=== PATIENT | male | born 1960 | race Caucasian/White ===

== ENCOUNTER → 2021-10-14 | Outpatient (CLI) | payer BC ==
[~2021-10-14] MED LIST: CIPR500 PO; EZETIMIBE-SIMV1 EAC1 PO; IRBE150; IRBE150 PO; METF500C PO; METO100ER; METO25ER; METO50ER PO; OXYACE10; OXYACE5T PO; PHENA200 PO; PROM25 PO; TAMS.4ER; TAMS.4ER PO; VENL37.5; WARF1; WARF10; WARF7.5
== END | disposition home or self-care (01) ==
LOC: LAB SHORT 15:05
DX: L72.9 Follicular cyst of the skin and subcutaneous tissue, unspecified (principal)
CPT/HCPCS: 88304

== ENCOUNTER 2024-01-31 17:30 | Inpatient (IN) | payer OTHER ==
[~2024-01-31] VITALS: Ht 180.3 cm; Wt 124.7 kg
[~2024-01-31 17:30] MED LIST changes: +Benadryl Itch28.3 G1 TOP; +CEPH500 PO; +ELIQUIS5 M2 PO; +MIRT15 PO; +ROSU10TA PO; +TRAM50 PO; +VISBIOME 112.51 EACH PO
[2024-01-31 18:05] LABS: BASOPHILS ABSOLUTE AUTO 0.04 K/mm3 (0.00-0.23); BASOPHILS PERCENT AUTO 0 % (0-2); EOSINOPHILS ABSOLUTE AUTO 0.09 K/mm3 (0.00-0.68); EOSINOPHILS PERCENT AUTO 1 % (0-6); Hematocrit 37.2 % (37.0-53.0); Hemoglobin 12.4 g/dL (13.5-17.5); IMMATURE GRAN ABSOLUTE AUTO 0.05 K/mm3 (0.00-0.10); IMMATURE GRAN PERCENT AUTO 1 % (0-1); LYMPHOCYTES ABSOLUTE AUTO 1.43 K/mm3 (0.84-5.20); LYMPHOCYTES PERCENT AUTO 14 % (21-46); MONOCYTES ABSOLUTE AUTO 0.72 K/mm3 (0.16-1.47); MONOCYTES PERCENT AUTO 7 % (4-13); Mean Corpuscular HGB 31.6 pg (26.0-34.0); Mean Corpuscular HGB Conc 33.3 g/dL (31.5-36.5); Mean Corpuscular Volume 95 fL (80-100); Mean Platelet Volume 8.2 fL (9.1-12.4); NEUTROPHILS ABSOLUTE AUTO 7.66 K/mm3 (1.96-9.15); NEUTROPHILS PERCENT AUTO 77 % (41-73); Platelet Count 373 K/mm3 (150-400); RDW Coefficient Variation 13.4 % (11.7-14.2); RDW Standard Deviation 47.2 fL (35.1-46.3); Red Blood Cell Count 3.93 M/mm3 (4.30-5.90); White Blood Cell Count 9.99 K/mm3 (4.00-11.30)
[2024-01-31] MEDS ORDERED: VANCOMYCIN HCL IV ONE (18:25)
[2024-01-31] MEDS ORDERED: CefTRIAXone Sodium 1,000 MG in NS 50 ML IV ONE (18:25)
[2024-01-31] MEDS ORDERED: NS IV ONE (18:25)
[2024-01-31 18:28] LABS: Albumin, Blood 2.5 g/dL (3.4-5.0); Albumin/Globulin Ratio 0.5 (0.8-1.8); Bilirubin, Total 0.8 mg/dL (0.1-1.0); Bun/Creatinine Ratio 15.1 (12.0-20.0); Calcium, Blood 9.1 mg/dL (8.5-10.1); Creatinine, Blood 0.99 mg/dL (0.60-1.20); Globulin, Blood 5.5 g/dL (2.2-4.0); Potassium, Blood 4.4 mmol/L (3.5-5.5)
[2024-01-31] MEDS ORDERED: OxyCODONE HCL 5 MG TAB PO PRN (20:20)
[2024-01-31] MEDS ORDERED: Ondansetron HCl 2 MG / ML 2ML Vial IV PRN (20:20)
[2024-01-31] MEDS ORDERED: TraMADol HCl 50 MG Tab PO PRN (20:25)
[2024-01-31] MEDS ORDERED: Acetaminophen 325 MG TABLET PO PRN (20:25)
[2024-01-31] MEDS ORDERED: Docusate Sodium 100 MG Cap PO SCH (21:00)
[2024-01-31] MEDS ORDERED: Lactobacil 2-S.Thermo-Bifido 1 1 Cap PO SCH (21:00)
[2024-01-31] MEDS ORDERED: Insulin Regular 100 UNIT/ML 10ML Vial SC SCH (21:00)
[2024-01-31 21:12] LABS: International Normalized Ratio 1.11; Prothrombin Time Results 11.8 Sec (9.7-11.5)
[2024-01-31] MEDS ORDERED: Benadryl Itch28.3 G1 TOP (21:18)
[2024-01-31] MEDS ORDERED: Heparin Sodium 5000 Units/ML 1ML MDV IV ONE (22:00)
[2024-01-31] MEDS ORDERED: Heparin Sodium,Porcine/0.5 NS 500 ML IV SCH (22:00)
[2024-01-31 22:17] VITALS: BP 123/77
[2024-01-31] MEDS ORDERED: HYDROCORTISON28.4 G4 TOP (22:27)
[2024-01-31] MEDS ORDERED: BUPR150ER PO (22:29)
[2024-01-31] MEDS ORDERED: MIRT15ST PO (22:30)
[2024-01-31] MEDS ORDERED: CAMPHOR-MENTHOL TOP (22:32)
--- NOTE | 2024-02-01 05:16 | NUR ---
T/F AND SUMMARY: REPORT RECIEVED FROM MAGGIE (GUN WELDER) AND PT T/F TO ROOM 333 VIA [facility] AT 2205. HE'S A/OX4, WAS ORIENTED TO ROOM AND CALL SYSTEM AND IS PLEASANT AND COOPERATIVE W/CARE. HE'S INDEPENDENT AT BASELINE BUT IS CURRENTLY SBA OOB W/FWW D/T L.HIP CELLULITIS THAT'S SLIGHTLY INHIBITING HIS ROM AND GAIT. HE REPORTS TENDERNESS TO ERYTHEMATOUS AREA THAT IS APPROX 15CM X 10CM BUT DENIED NEEDING ANY PRN PAIN MEDS T/O NOCTE. PERIMETER WAS MARKED AND PHOTOS WERE TAKEN. HE ALSO HAS CHRONIC BLE VENOUS STASIS W/2+ EDEMA TO RLE AND 1+ EDEMA TO LLE. PT HAS HX OF DVT W/RECENT THROMBECTOMY ON 12/09/23 BUT MISSED MULTIPLE DOSES OF XARELTO D/T N/V PRECEEDING ADMIT. HE HAD A 7600 UNIT HEPARIN BOLUS THEN HEPERIN GTT WAS COMMENCED AT 18 UN/KG/HR (34.2 ML/HR). IV ABX WERE RECIEVED FOR CELLULITIS AND EMPIRIC TX OF SEPTIC ARTHRITIS. VENOUS DUPLEX IS PENDING. NO ACUTE CHANGES, VSS/AFEBRILE. WCTM AND REPORT TO DAY RN.
[2024-02-01 05:40] VITALS: BP 127/92
[2024-02-01 05:55] LABS: BASOPHILS ABSOLUTE AUTO 0.03 K/mm3 (0.00-0.23); BASOPHILS PERCENT AUTO 0 % (0-2); EOSINOPHILS ABSOLUTE AUTO 0.23 K/mm3 (0.00-0.68); EOSINOPHILS PERCENT AUTO 3 % (0-6); Hemoglobin 12.4 g/dL (13.5-17.5); IMMATURE GRAN ABSOLUTE AUTO 0.06 K/mm3 (0.00-0.10); IMMATURE GRAN PERCENT AUTO 1 % (0-1); LYMPHOCYTES ABSOLUTE AUTO 1.61 K/mm3 (0.84-5.20); LYMPHOCYTES PERCENT AUTO 17 % (21-46); MONOCYTES ABSOLUTE AUTO 0.78 K/mm3 (0.16-1.47); MONOCYTES PERCENT AUTO 8 % (4-13); Mean Corpuscular HGB 31.7 pg (26.0-34.0); Mean Corpuscular HGB Conc 33.5 g/dL (31.5-36.5); Mean Corpuscular Volume 95 fL (80-100); Mean Platelet Volume 8.5 fL (9.1-12.4); NEUTROPHILS ABSOLUTE AUTO 6.65 K/mm3 (1.96-9.15); NEUTROPHILS PERCENT AUTO 71 % (41-73); Platelet Count 341 K/mm3 (150-400); RDW Coefficient Variation 13.7 % (11.7-14.2); RDW Standard Deviation 47.3 fL (35.1-46.3); Red Blood Cell Count 3.91 M/mm3 (4.30-5.90); White Blood Cell Count 9.36 K/mm3 (4.00-11.30)
[2024-02-01] MEDS ORDERED: Dose Adjust by Pharmacy XX STA ×3 (06:13→21:32)
[2024-02-01] MEDS ORDERED: Heparin Sodium 5000 Units/ML 1ML MDV IV ONE ×2 (06:15→14:20)
[2024-02-01 06:35] LABS: Albumin, Blood 2.6 g/dL (3.4-5.0); Albumin/Globulin Ratio 0.5 (0.8-1.8); Bilirubin, Total 0.5 mg/dL (0.1-1.0); Bun/Creatinine Ratio 15.1 (12.0-20.0); Calcium, Blood 9.6 mg/dL (8.5-10.1); Creatinine, Blood 1.06 mg/dL (0.60-1.20); Globulin, Blood 4.9 g/dL (2.2-4.0); Magnesium, Blood 1.9 mg/dL (1.6-2.4); Potassium, Blood 3.8 mmol/L (3.5-5.5); Total Protein, Blood 7.5 g/dL (6.4-8.2)
[2024-02-01 08:04] VITALS: BP 119/81
--- NOTE | 2024-02-01 16:15 | NUR ---
Upon reveiving a referral for spiritual care, I visited the patient. He is immediately tearful as I hear his confessions, his heartache and personal stories. We talk at length about the challenges he has faced and reframed how he waas assigning meaning to them. We explored his spiritual beliefs and leaned into the strength of those values and principles. Patient was very encourgaed by this conversation. I concluded our time with a prayer which patient again became tearful. He states that the prayer and conversation was exactly what he needed. I will continue to remain available to patient and family.
[2024-02-01 16:17] VITALS: BP 132/111
--- NOTE | 2024-02-01 16:30 | NUR ---
PT AOX4 AND COOPERATIVE OF CARE. PT HAS BEEN RESTIN IN BED AND USES URINAL INDEPENDENTLY. PT'S REDNESS AROUND OLD L HIP INCISION IS STAYING INSIDE LINES NURSE PLACED. PT CURRENTLY RESTING CALL LIGHT WITHIN REACH.
[2024-02-01] MEDS ORDERED: CefTRIAXone Sodium 1,000 MG in NS 100 ML IV SCH (18:00)
[2024-02-01 19:43] VITALS: BP 126/86
[2024-02-02 03:16] VITALS: BP 115/78
[2024-02-02 04:32] LABS: BASOPHILS ABSOLUTE AUTO 0.05 K/mm3 (0.00-0.23); BASOPHILS PERCENT AUTO 1 % (0-2); EOSINOPHILS ABSOLUTE AUTO 0.27 K/mm3 (0.00-0.68); EOSINOPHILS PERCENT AUTO 5 % (0-6); Hematocrit 36.4 % (37.0-53.0); Hemoglobin 12.1 g/dL (13.5-17.5); IMMATURE GRAN ABSOLUTE AUTO 0.05 K/mm3 (0.00-0.10); IMMATURE GRAN PERCENT AUTO 1 % (0-1); LYMPHOCYTES ABSOLUTE AUTO 1.48 K/mm3 (0.84-5.20); LYMPHOCYTES PERCENT AUTO 25 % (21-46); MONOCYTES ABSOLUTE AUTO 0.54 K/mm3 (0.16-1.47); MONOCYTES PERCENT AUTO 9 % (4-13); Mean Corpuscular HGB 31.3 pg (26.0-34.0); Mean Corpuscular HGB Conc 33.2 g/dL (31.5-36.5); Mean Corpuscular Volume 94 fL (80-100); Mean Platelet Volume 8.3 fL (9.1-12.4); NEUTROPHILS ABSOLUTE AUTO 3.65 K/mm3 (1.96-9.15); NEUTROPHILS PERCENT AUTO 61 % (41-73); Platelet Count 320 K/mm3 (150-400); RDW Coefficient Variation 13.6 % (11.7-14.2); Red Blood Cell Count 3.86 M/mm3 (4.30-5.90); White Blood Cell Count 6.04 K/mm3 (4.00-11.30)
[2024-02-02] MEDS ORDERED: Dose Adjust by Pharmacy XX STA ×2 (04:56→11:42)
[2024-02-02 05:01] LABS: Albumin, Blood 2.4 g/dL (3.4-5.0); Albumin/Globulin Ratio 0.5 (0.8-1.8); Bilirubin, Total 0.4 mg/dL (0.1-1.0); Calcium, Blood 9.3 mg/dL (8.5-10.1); Total Protein, Blood 7.4 g/dL (6.4-8.2)
[2024-02-02 07:25] VITALS: BP 127/91
--- NOTE | 2024-02-02 09:06 | NUR ---
SHIFT SUMMARY PT IS A&OX4, PLEASANT AND COOPERATIVE WITH CARES. VSS ON RA. DENIES PAIN. PT REMAINS ON HEPARIN GTT, INCREASED DOSE TWICE THIS SHIFT VIA PHARMACY. TOLERATING A CONS CARB DIET, HOWEVER SOMEONE BROUGHT HIM A LARGE MILKSHAKE FROM [employer] AND HE DRANK IT BEFORE WE COULD CHECK HIS BG. USING URINAL INDEPENDENTLY IN BED, NO BM THIS SHIFT. VOIDING LARGE AMOUNTS OF DARK YELLOW URINE. OUTLINE TO L HIP, STILL WITHIN LIMIT. BED IN LOWEST POSITION, CALL LIGHT WITHIN REACH.
[2024-02-02 09:16] LABS: Vancomycin, Trough 13.3 ug/mL (5.0-10.0)
[2024-02-02] MEDS ORDERED: Vancomycin HCL 1,500 MG in NS 250 ML IV SCH (10:00)
[2024-02-02 15:59] VITALS: BP 133/99
--- NOTE | 2024-02-02 16:45 | NUR ---
NO ACUTE CHANGES PT HAS BEEN DOING WELL AOX4 AND COOPERATIVE OF CARE. L HIP RED AREA IS STAYING IN MARKED BOUNDARY. PT STATES IT IS NOT PAINFUL. PT USES URININAL AND IS A ONE ASSIST TO RESTROOM WITH WALKER. NO DISTRESS NOTED WILL CONTINUE TO MONITOR.
[2024-02-02] MEDS ORDERED: CeFAZolin Sodium 1,000 MG in NS 50 ML IV SCH (18:00)
[2024-02-02] MEDS ORDERED: Clarify Drug Order XX ONE (19:10)
[2024-02-02 19:16] VITALS: BP 133/95
[2024-02-03] MEDS ORDERED: NS 50 ML IV SCH (00:05)
[2024-02-03] MEDS ORDERED: Clarify Drug Order XX ONE (01:40)
[2024-02-03 02:46] VITALS: BP 134/90
--- NOTE | 2024-02-03 05:58 | NUR ---
PATIENT GIVEN IV ANTIBIOTIC AND HEPARIN WITH NO ISSUES. USING URINAL DUE TO CELLULITIS IN LEFT LEG, STATES AMBULATES SELF AT HOME. PATIENT HOPES TO GO HOME TODAY WITH ORAL ANTIBIOTICS. PLEASANT, A AND O X4, COOPERATIVE WITH CARES. NO NEW ISSUES OR CONCERNS THIS SHIFT. PATIENT RESTED MOST OF THE SHIFT.
[2024-02-03 07:34] LABS: BASOPHILS ABSOLUTE AUTO 0.06 K/mm3 (0.00-0.23); BASOPHILS PERCENT AUTO 1 % (0-2); EOSINOPHILS ABSOLUTE AUTO 0.39 K/mm3 (0.00-0.68); EOSINOPHILS PERCENT AUTO 6 % (0-6); Hemoglobin 12.1 g/dL (13.5-17.5); IMMATURE GRAN ABSOLUTE AUTO 0.04 K/mm3 (0.00-0.10); IMMATURE GRAN PERCENT AUTO 1 % (0-1); LYMPHOCYTES ABSOLUTE AUTO 1.78 K/mm3 (0.84-5.20); LYMPHOCYTES PERCENT AUTO 29 % (21-46); MONOCYTES ABSOLUTE AUTO 0.39 K/mm3 (0.16-1.47); MONOCYTES PERCENT AUTO 6 % (4-13); Mean Corpuscular HGB 31.2 pg (26.0-34.0); Mean Corpuscular HGB Conc 32.7 g/dL (31.5-36.5); Mean Corpuscular Volume 95 fL (80-100); Mean Platelet Volume 8.3 fL (9.1-12.4); NEUTROPHILS PERCENT AUTO 56 % (41-73); Platelet Count 337 K/mm3 (150-400); RDW Coefficient Variation 13.5 % (11.7-14.2); RDW Standard Deviation 47.6 fL (35.1-46.3); Red Blood Cell Count 3.88 M/mm3 (4.30-5.90); White Blood Cell Count 6.06 K/mm3 (4.00-11.30)
[2024-02-03 07:46] LABS: Albumin, Blood 2.4 g/dL (3.4-5.0); Albumin/Globulin Ratio 0.5 (0.8-1.8); Bilirubin, Total 0.3 mg/dL (0.1-1.0); Bun/Creatinine Ratio 14.4 (12.0-20.0); Calcium, Blood 9.4 mg/dL (8.5-10.1); Creatinine, Blood 1.11 mg/dL (0.60-1.20); Globulin, Blood 4.8 g/dL (2.2-4.0); Total Protein, Blood 7.2 g/dL (6.4-8.2)
[2024-02-03 07:54] VITALS: BP 134/106
[2024-02-03] MEDS ORDERED: Apixaban 5 MG Tab PO SCH (10:05)
[2024-02-03] MEDS ORDERED: VISBIOME 112.51 EACH PO (11:44)
[2024-02-03] MEDS ORDERED: CEPH500 PO (11:44)
[2024-02-03] MEDS ORDERED: ACET325 PO (11:44)
--- NOTE | 2024-02-03 13:05 | NUR ---
DISCHARGE NOTE MR HOLDER IS ORIENTATED X4. UP INDEPENDENTLY WITH STEADY GAIT IN THE ROOM/TO SHOWER. REDNESS AND SWELLING TO LEFT HIP LESSENED PER BLACK MARKER OUTLINE AND PER PT. DENIES PAIN. PIV X 2 REMOVED. HEPARIN GTT STOPPED THIS AM AND ELIQUIS RESTARTED. PT GIVEN WRITTEN AND VERBAL DISCHARGE INSTRUCTIONS AND VERBALISED GOOD UNDERSTANDING. HE DENIES ANY NEW PROBLEMS OR CONCERNS. [facility] FOR [facility].
--- NOTE | 2024-02-03 13:36 | NUR ---
LEFT WITH [facility]SP[facility] AT [id number].
== END 2024-02-03 13:35 | disposition home or self-care (01) | DRG 603 ==
LOC: ER 17:30 → MEDS 17:31 → ENPENDDIS 02-03 10:43 → MEDS 02-03 13:35
PROVIDERS: Pharmacist; Student in an Organized Health Care Education/Training Program; ADMIT Student in an Organized Health Care Education/Training Program
DX: L03.116 Cellulitis of left lower limb (principal); I48.91 Unspecified atrial fibrillation; I12.9 Hypertensive chronic kidney disease with stage 1 through stage 4 chronic kidney disease, or unspecified chronic kidney disease; E11.22 Type 2 diabetes mellitus with diabetic chronic kidney disease; N18.30 Chronic kidney disease, stage 3 unspecified; Z86.718 Personal history of other venous thrombosis and embolism; Z98.890 Other specified postprocedural states; Z87.891 Personal history of nicotine dependence; Z91.018 Allergy to other foods; Z79.01 Long term (current) use of anticoagulants; Z79.84 Long term (current) use of oral hypoglycemic drugs; Z79.899 Other long term (current) drug therapy
CPT/HCPCS: 36415; 72192; 73502; 80053; 80202; 82947; 83036; 83605; 83735; 85025; 85610; 85651; 85730; 86141; 87040; 93971; 96365; 96366; 96367; 99284-25; A9270; G0378; J0690; J0696; J1644; J1815; J3370; J7050